=== PATIENT | male | born 1965 | race Caucasian/White ===

== ENCOUNTER 2022-04-16 07:41 | Day surgery (SDC) | payer OTHER ==
[~2022-04-16] VITALS: Ht 177.8 cm; Wt 89.6 kg
[~2022-04-16 07:41] MED LIST: ASPI81CH PO; DETEMIR; GLIP5 PO; LISI5 PO; METF500C PO; METO25ER PO; Novolog100 UNIT/1; SIMV20 PO; TRULICITY1.5 MG/0.5
[2022-04-16] MEDS ORDERED: OZEMPIC1 MG/0.72 (10:07)
[2022-04-16] MEDS ORDERED: PIOG30 (10:11)
--- NOTE | 2022-04-16 11:19 | NUR ---
History, Chart, Medications and Allergies reviewed before start of procedure.Lungs clear T/O to Auscultation.PRE OP TEAVHING SONE, AT BEDSIDE. PT LEFT HEARING AIDS AT HOME.
--- NOTE | 2022-04-16 15:57 | NUR ---
Discharge instructions reviewed with patient. Patient verbalizes understanding. Copy given to patient to take home. Discharged via wheelchair to private car for ride home.
== END 2022-04-16 15:40 | disposition home or self-care (01) ==
LOC: ORSCMMR 07:41 → ORD 11:00 → ORSCMMR 15:40
PROVIDERS: Orthopaedic Surgery
PROC: 0PSL04Z Reposition Left Ulna with Internal Fixation Device, Open Approach (ICD-10-PCS; principal; 2022-04-16 10:15)
DX: S52.032A Displaced fracture of olecranon process with intraarticular extension of left ulna, initial encounter for closed fracture (principal); E11.9 Type 2 diabetes mellitus without complications; E78.00 Pure hypercholesterolemia, unspecified; G47.33 Obstructive sleep apnea (adult) (pediatric); Z79.84 Long term (current) use of oral hypoglycemic drugs; Z79.899 Other long term (current) drug therapy; Z79.4 Long term (current) use of insulin; Z79.82 Long term (current) use of aspirin
CPT/HCPCS: 82947; A9270; C1713; J0690; J1100; J1885; J2250; J2405; J2704; J2795; J3010; J7120